=== PATIENT | female | born 1970 | race Caucasian/White ===

== ENCOUNTER → 2017-04-19 16:04 | Outpatient (CLI) | payer BC ==
[2011-11-14 18:32] VITALS: BMI 36.1
== END | disposition home or self-care (01) ==
LOC: D.RAD 16:04
DX: M25.551 Pain in right hip (principal)

== ENCOUNTER 2018-07-14 17:05 | Inpatient (IN) | payer BC ==
[~2018-07-14] VITALS: Ht 170.2 cm; Wt 104.5 kg
[2018-07-14 17:50] LABS: EOSINOPHILS 5.3 % (0-7); IMMATURE GRANULOCYTES 0.3 % (0-5); LYMPHOCYTES 29.5 % (15-50); MCHC 24.7 g/dL (31.0-37.0); MCV 64.6 fL (80.0-100.0); MONOCYTES 5.8 % (2-11); NEUTROPHILS 58.1 % (40-80); PLATELET COUNT 285 10x3/uL (130-400); RBC 2.88 10x6/uL (4.00-5.40); WBC 7.2 10x3/uL (4.8-10.8)
[2018-07-14 17:56] LABS: HEMATOCRIT 18.6 % (36.0-48.0); HEMOGLOBIN 4.6 g/dL (12-16)
[2018-07-14 18:05] LABS: ALBUMIN 3.7 g/dL (3.4-5.0); ALKALINE PHOSPHATASE 65 U/L (46-116); ALT (SGPT) 22 U/L (10-68); BILIRUBIN - TOTAL 0.99 mg/dL (0.2-1.3); CALC OSMOLALITY 272 mosm/kg (275-300); CARBON DIOXIDE 25.3 mmol/L (21.0-32.0); CHLORIDE - SERUM 104 mmol/L (98-107); CREATININE - SERUM 0.8 mg/dL (0.6-1.3); GLUCOSE 100 mg/dL (74-106); SODIUM 137 mmol/L (136-145); UREA NITROGEN 10 mg/dL (7-18); eGFR NON AFRICAN AMERICAN 81 mL/min (90-120)
[2018-07-14 18:30] LABS: INR 1.01 (0.85-1.17); PROTIME 12.9 SECONDS (11.6-15.0)
[2018-07-14 18:35] LABS: CKMB 0.9 U/L (0.0-3.6); CREATINE KINASE 70 UL (21-215)
[2018-07-14 18:36] LABS: C-REACTIVE PROTEIN < 0.2 mg/dL (0.0-0.9)
[2018-07-14 18:44] LABS: % SATURATION 3 % (15-55); IRON 19 ug/dl (35-150); TOTAL IRON BIND CAPACITY 565 ug/dl (260-445)
[2018-07-14 18:57] LABS: APPEARANCE HAZY (CLEAR); NITRITE NEGATIVE (NEGATIVE); PROTEIN TRACE mg/dL (NEGATIVE)
[2018-07-14 18:58] LABS: BACTERIA FEW /hpf (NONE SEEN); BILIRUBIN NEGATIVE (NEGATIVE); GLUCOSE NEGATIVE (NEGATIVE); KETONE NEGATIVE (NEGATIVE); RED CELLS - URINE 25-50 /hpf (0-5); UROBILINOGEN NORMAL (NORMAL)
[2018-07-14 19:10] LABS: UNSAT IRON BIND CAPACITY 546 ug/dl (150-375)
[2018-07-14 19:39] VITALS: BP 158/77
[2018-07-14 19:55] VITALS: BP 154/91
[2018-07-14 20:00] VITALS: BP 154/78
[2018-07-14 21:00] VITALS: BP 152/83; BP 154/83
[2018-07-14 21:15] VITALS: BP 163/74
[2018-07-14] MEDS ORDERED: EXCEDRIN CAPLET1 TAB PO (22:30)
[2018-07-14] MEDS ORDERED: IBUPROFEN400 MG PO (22:30)
[2018-07-14] MEDS ORDERED: BENADRYL50 MG PO (22:30)
[2018-07-14] MEDS ORDERED: MELATONIN10 M1 PO (22:31)
[2018-07-14 22:33] VITALS: BP 163/74; BMI 36.1
[2018-07-15] VITALS: BP 157/65
[2018-07-15 04:22] VITALS: BP 157/77
[2018-07-15 07:53] LABS: MCHC 28.5 g/dL (31.0-37.0); MEAN PLATELET VOLUME 8.2 fL (7.4-10.4); PLATELET COUNT 254 10x3/uL (130-400); RBC 3.25 10x6/uL (4.00-5.40); WBC 6.8 10x3/uL (4.8-10.8)
[2018-07-15 08:08] LABS: CALC OSMOLALITY 275 mosm/kg (275-300); CALCIUM 7.8 mg/dL (8.5-10.1); CARBON DIOXIDE 24.3 mmol/L (21.0-32.0); CHLORIDE - SERUM 108 mmol/L (98-107); CREATININE - SERUM 0.7 mg/dL (0.6-1.3); GLUCOSE 100 mg/dL (74-106); SODIUM 139 mmol/L (136-145); UREA NITROGEN 8 mg/dL (7-18); eGFR NON AFRICAN AMERICAN > 90 mL/min (90-120)
[2018-07-15 08:09] LABS: HEMATOCRIT 22.8 % (36.0-48.0); HEMOGLOBIN 6.5 g/dL (12-16); MCV 70.2 fL (80.0-100.0)
[2018-07-15 08:47] LABS: ANISOCYTOSIS 1+; EOSINOPHILS 4 % (0-7); HYPOCHROMASIA 3+; LYMPHOCYTES 22 % (15-50); MONOCYTES 3 % (2-11); NEUTROPHILS 67 % (40-80); PLATELET ESTIMATE NORMAL
[2018-07-15 10:49] VITALS: Ht 170.2 cm; Wt 104.5 kg
[2018-07-15 16:49] LABS: HEMATOCRIT 29.3 % (36.0-48.0); HEMOGLOBIN 8.6 g/dL (12-16)
[2018-07-25] MEDS ORDERED: FEXOFENADINE HC60 MG PO (09:49)
[2018-07-25] MEDS ORDERED: PHENERGAN25 M1 PO (09:49)
[2018-07-25] MEDS ORDERED: HYDROCODON-ACE1 EAC7 PO (09:50)
== END 2018-07-15 18:13 | disposition home or self-care (01) | DRG 760 ==
LOC: D.ER 17:05 → D.EDHOLD 19:05 → D.MS 19:50
PROVIDERS: Family Medicine
DX: D25.9 Leiomyoma of uterus, unspecified (principal); D62 Acute posthemorrhagic anemia; N83.299 Other ovarian cyst, unspecified side; I10 Essential (primary) hypertension; K21.9 Gastro-esophageal reflux disease without esophagitis; R51 Headache

== ENCOUNTER 2018-07-20 08:38 | Outpatient (CLI) | payer BC ==
[~2018-07-20] VITALS: Ht 170.2 cm; Wt 104.5 kg
[~2018-07-20 08:38] MED LIST: BENADRYL50 MG PO; EXCEDRIN CAPLET1 TAB PO; IBUPROFEN400 MG PO; MELATONIN10 M1 PO
[2018-07-20 09:53] VITALS: BP 122/77; Ht 170.2 cm; Wt 104.5 kg
[2018-07-25] MEDS ORDERED: PHENERGAN25 M1 PO (09:49)
[2018-07-25] MEDS ORDERED: FEXOFENADINE HC60 MG PO (09:49)
[2018-07-25] MEDS ORDERED: HYDROCODON-ACE1 EAC7 PO (09:50)
== END 2018-07-20 15:31 | disposition home or self-care (01) ==
LOC: D.OPS 08:38
DX: D64.9 Anemia, unspecified (principal); Z01.812 Encounter for preprocedural laboratory examination

== ENCOUNTER 2018-07-27 05:50 | Inpatient (IN) | payer BC ==
[2018-07-25 09:56] LABS: EOSINOPHILS 3.5 % (0-7); HEMATOCRIT 38.1 % (36.0-48.0); HEMOGLOBIN 11.5 g/dL (12-16); LYMPHOCYTES 27.2 % (15-50); MCH 23.7 pg (26.0-34.0); MCHC 30.2 g/dL (31.0-37.0); MCV 78.6 fL (80.0-100.0); MEAN PLATELET VOLUME 9.2 fL (7.4-10.4); MONOCYTES 8.4 % (2-11); NEUTROPHILS 59.9 % (40-80); RBC 4.85 10x6/uL (4.00-5.40); RDW 25.3 % (11.5-14.5)
[2018-07-25 09:58] LABS: PLATELET COUNT 341 10x3/uL (130-400)
[2018-07-25 10:05] LABS: CALC OSMOLALITY 279 mosm/kg (275-300); CALCIUM 8.6 mg/dL (8.5-10.1); CARBON DIOXIDE 23.6 mmol/L (21.0-32.0); CHLORIDE - SERUM 106 mmol/L (98-107); CREATININE - SERUM 0.7 mg/dL (0.6-1.3); GLUCOSE 102 mg/dL (74-106); POTASSIUM - SERUM 4.4 mmol/L (3.5-5.1); SODIUM 141 mmol/L (136-145); UREA NITROGEN 9 mg/dL (7-18); eGFR NON AFRICAN AMERICAN > 90 mL/min (90-120)
[~2018-07-27] VITALS: Ht 171.4 cm; Wt 104.5 kg
[2018-07-27] VITALS (15 sets, daily range): BP systolic 136–187; BP diastolic 67–107; Ht 171.4 cm; Wt 104.5 kg
[~2018-07-27 05:50] MED LIST changes: +FEXOFENADINE HC60 MG PO; +HYDROCODON-ACE1 EAC7 PO; +PHENERGAN25 M1 PO
[2018-07-27 06:19] LABS: HCG URINE NEGATIVE (NEGATIVE)
[2018-07-27 15:18] LABS: BASOPHILS 0.2 % (0-2); EOSINOPHILS 0 % (0-7); HEMATOCRIT 35.3 % (36.0-48.0); HEMOGLOBIN 10.7 g/dL (12-16); IMMATURE GRANULOCYTES 0.3 % (0-5); LYMPHOCYTES 8.4 % (15-50); MCH 23.9 pg (26.0-34.0); MCHC 30.3 g/dL (31.0-37.0); MCV 78.8 fL (80.0-100.0); MEAN PLATELET VOLUME 9.1 fL (7.4-10.4); MONOCYTES 5.1 % (2-11); RBC 4.48 10x6/uL (4.00-5.40); RDW 24.7 % (11.5-14.5); WBC 11.4 10x3/uL (4.8-10.8)
[2018-07-27 15:27] LABS: PLATELET COUNT 200 10x3/uL (130-400)
[2018-07-27 15:28] LABS: CALC OSMOLALITY 275 mosm/kg (275-300); CALCIUM 8.4 mg/dL (8.5-10.1); CARBON DIOXIDE 27.4 mmol/L (21.0-32.0); CHLORIDE - SERUM 104 mmol/L (98-107); CREATININE - SERUM 0.6 mg/dL (0.6-1.3); GLUCOSE 107 mg/dL (74-106); POTASSIUM - SERUM 4.5 mmol/L (3.5-5.1); SODIUM 139 mmol/L (136-145); UREA NITROGEN 6 mg/dL (7-18); eGFR NON AFRICAN AMERICAN > 90 mL/min (90-120)
[2018-07-28] VITALS (7 sets, daily range): BP systolic 103–130; BP diastolic 55–72
[2018-07-28 05:25] LABS: BASOPHILS 0.3 % (0-2); EOSINOPHILS 2.4 % (0-7); HEMATOCRIT 32.7 % (36.0-48.0); HEMOGLOBIN 9.7 g/dL (12-16); IMMATURE GRANULOCYTES 0.2 % (0-5); MCH 23.8 pg (26.0-34.0); MCHC 29.7 g/dL (31.0-37.0); MCV 80.1 fL (80.0-100.0); MEAN PLATELET VOLUME 9.1 fL (7.4-10.4); MONOCYTES 10.1 % (2-11); RBC 4.08 10x6/uL (4.00-5.40); RDW 24.9 % (11.5-14.5)
[2018-07-28 05:26] LABS: PLATELET COUNT 319 10x3/uL (130-400); WBC 6.2 10x3/uL (4.8-10.8)
[2018-07-28 05:41] LABS: CALC OSMOLALITY 275 mosm/kg (275-300); CALCIUM 8.1 mg/dL (8.5-10.1); CARBON DIOXIDE 29.5 mmol/L (21.0-32.0); CHLORIDE - SERUM 106 mmol/L (98-107); CREATININE - SERUM 0.6 mg/dL (0.6-1.3); GLUCOSE 99 mg/dL (74-106); SODIUM 140 mmol/L (136-145); UREA NITROGEN 5 mg/dL (7-18); eGFR NON AFRICAN AMERICAN > 90 mL/min (90-120)
[2018-07-28 05:42] LABS: POTASSIUM - SERUM 3.8 mmol/L (3.5-5.1)
[2018-07-29 08:22] VITALS: BP 117/63
[2018-07-29 15:43] VITALS: BP 151/75
[2018-07-29 15:44] VITALS: BP 145/64
[2018-07-29 15:45] VITALS: BP 130/60
[2018-07-29 21:40] VITALS: BP 151/74
[2018-07-30 04:09] VITALS: BP 127/69
[2018-07-30 07:58] VITALS: BP 140/66
[2018-07-30] MEDS ORDERED: OXYCODONE-APAP1 TAB PO (08:55)
[2018-07-30] MEDS ORDERED: IBUPROFEN600 MG PO (08:56)
== END 2018-07-30 09:25 | disposition home or self-care (01) | DRG 742 ==
LOC: D.SDCHOLD 05:50 → D.LD 10:41
PROVIDERS: Obstetrics & Gynecology
PROC: 0UB70ZZ Excision of Bilateral Fallopian Tubes, Open Approach (ICD-10-PCS; 2018-07-27)
PROC: 0UT10ZZ Resection of Left Ovary, Open Approach (ICD-10-PCS; 2018-07-27)
PROC: 0UT90ZZ Resection of Uterus, Open Approach (ICD-10-PCS; principal; 2018-07-27 08:00)
DX: D25.9 Leiomyoma of uterus, unspecified (principal); D62 Acute posthemorrhagic anemia; N83.202 Unspecified ovarian cyst, left side; I10 Essential (primary) hypertension; N92.1 Excessive and frequent menstruation with irregular cycle

== ENCOUNTER 2019-01-14 04:49 | Emergency (ER) | payer BC ==
[~2019-01-14] VITALS: Ht 171.4 cm; Wt 113.6 kg
[~2019-01-14 04:49] MED LIST changes: +IBUPROFEN600 MG PO; +OXYCODONE-APAP1 TAB PO
[2019-01-14 04:57] VITALS: Ht 171.4 cm; Wt 113.6 kg
[2019-01-14] MEDS ORDERED: LISINOPRIL10 MG PO (04:57)
[2019-01-14] MEDS ORDERED: BENADRYL25 MG (04:57)
[2019-01-14 05:33] LABS: BASOPHILS 0.4 % (0-2); EOSINOPHILS 4.1 % (0-7); HEMATOCRIT 42.7 % (36.0-48.0); HEMOGLOBIN 14.6 g/dL (12-16); IMMATURE GRANULOCYTES 0.1 % (0-5); LYMPHOCYTES 34.3 % (15-50); MCHC 34.2 g/dL (31.0-37.0); MCV 93.6 fL (80.0-100.0); MEAN PLATELET VOLUME 9.3 fL (7.4-10.4); MONOCYTES 6.8 % (2-11); NEUTROPHILS 54.3 % (40-80); RBC 4.56 10x6/uL (4.00-5.40); WBC 7.3 10x3/uL (4.8-10.8)
[2019-01-14 05:41] LABS: PLATELET COUNT 216 10x3/uL (130-400)
[2019-01-14] MEDS ORDERED: NORVASC5 MG PO (05:56)
[2019-01-14] MEDS ORDERED: HYDROCHLOROTH12.5 M1 PO (05:56)
[2019-01-14 06:06] LABS: ALBUMIN 3.8 g/dL (3.4-5.0); ALKALINE PHOSPHATASE 75 U/L (46-116); ALT (SGPT) 96 U/L (10-68); BILIRUBIN - TOTAL 0.93 mg/dL (0.2-1.3); CALC OSMOLALITY 281 mosm/kg (275-300); CALCIUM 8.3 mg/dL (8.5-10.1); CARBON DIOXIDE 25.6 mmol/L (21.0-32.0); CHLORIDE - SERUM 104 mmol/L (98-107); CREATININE - SERUM 0.7 mg/dL (0.6-1.3); GLUCOSE 94 mg/dL (74-106); POTASSIUM - SERUM 3.9 mmol/L (3.5-5.1); PROTEIN - SERUM 6.7 g/dL (6.4-8.2); SODIUM 142 mmol/L (136-145); UREA NITROGEN 9 mg/dL (7-18); eGFR NON AFRICAN AMERICAN > 90 mL/min (90-120)
[2019-01-14 06:09] LABS: TROPONIN-I < 0.017 ng/mL (0.000-0.060)
[2019-01-14 06:36] VITALS: BP 152/87
== END 2019-01-14 06:37 | disposition home or self-care (01) ==
LOC: D.ER 04:49
PROVIDERS: Emergency Medicine
DX: I10 Essential (primary) hypertension (principal)

== ENCOUNTER → 2019-01-21 07:15 | Outpatient (CLI) | payer BC ==
[2019-01-14 04:57] VITALS: BMI 38.6
[~2019-01-21 07:15] MED LIST changes: +BENADRYL25 MG; +HYDROCHLOROTH12.5 M1 PO; +LISINOPRIL10 MG PO; +NORVASC5 MG PO
== END | disposition home or self-care (01) ==
LOC: D.US 07:15
PROVIDERS: ATTEND Family Medicine
DX: R94.5 Abnormal results of liver function studies (principal)

== ENCOUNTER → 2019-02-11 13:55 | Outpatient (CLI) | payer BC ==
[2019-01-14 04:57] VITALS: BMI 38.6
== END | disposition home or self-care (01) ==
LOC: D.HCCARDIO 13:55
PROVIDERS: ATTEND Internal Medicine Cardiovascular Disease
DX: I10 Essential (primary) hypertension (principal); I20.9 Angina pectoris, unspecified

== ENCOUNTER → 2021-03-03 09:00 | Outpatient (CLI) | payer BC ==
[2019-01-14 04:57] VITALS: BMI 38.6
[2021-03-03 09:32] LABS: INR 1.02 (0.85-1.17); PROTIME 12.4 SECONDS (11.6-15.0)
[2021-03-03 09:36] LABS: BILIRUBIN - DIRECT 0.27 mg/dL (0.00-0.30); BILIRUBIN - INDIRECT 1.02 mg/dL (0.00-1.00); BILIRUBIN - TOTAL 1.29 mg/dL (0.2-1.3)
== END | disposition home or self-care (01) ==
LOC: D.LAB 09:00
PROVIDERS: ATTEND Internal Medicine Gastroenterology
DX: E80.7 Disorder of bilirubin metabolism, unspecified (principal); R17 Unspecified jaundice

== ENCOUNTER → 2021-03-26 06:22 | Outpatient (CLI) | payer BC ==
[2019-01-14 04:57] VITALS: BMI 38.6
[2021-03-26 07:10] LABS: ALBUMIN 3.7 g/dL (3.4-5.0); BILIRUBIN - DIRECT 0.2 mg/dL (0.00-0.30); BILIRUBIN - INDIRECT 0.66 mg/dL (0.00-1.00); BILIRUBIN - TOTAL 0.86 mg/dL (0.2-1.3); PROTEIN - SERUM 6.8 g/dL (6.4-8.2)
== END | disposition home or self-care (01) ==
LOC: D.US 06:22
PROVIDERS: ATTEND Internal Medicine Gastroenterology
DX: K76.0 Fatty (change of) liver, not elsewhere classified (principal)